=== PATIENT | male | born 1995 ===

== ENCOUNTER 2020-04-18 19:59 | Emergency (ER) | payer BC, SELFPAY ==
[2020-04-18 20:07] VITALS: BP 131/90; PULSE 80; RESP 18; TEMP 36.6; O2SAT 97; BMI 29.1
--- NOTE | 2020-04-18 20:17 | ED_ITS ---
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 Patient has had multiple recent exposures to COVID positive patients as an EMT. Patient has current symptoms of nonproductive cough and loss of taste. Patient says he had some nasal drainage and diarrhea earlier this week but that has since resolved. Denies any fever or chills. Associated symptoms: Deny chest pain, dyspnea, headache(s), nausea, rash, palpitations or vomiting Review of Systems Const: Reports: other (Loss of taste); Denies: fever(s), chills or fatigue Eyes: Denies: change in vision or eye discomfort ENMT: Reports: nasal discharge (This symptom has since resolved.); Denies: throat pain, odynophagia or nasal congestion Card: Denies: chest pain, palpitations, edema, swelling of feet/ankles, dyspnea on exertion or orthopnea Resp: Reports: non-productive cough; Denies: dyspnea or productive cough GI: Reports: diarrhea (Patient had this symptom earlier this week but it has since resolved.); Denies: abdominal pain, nausea, vomiting, constipation or hematochezia : Denies: flank pain, difficulty urinating, dysuria or hematuria Musc: Denies: neck pain, back pain or extremity swelling Skin/Breast: Denies: rash or new lesions Neuro: Denies: headache(s), numbness in extremities or weakness in extremities Physical Exam Const: COMMON NORMALS: no acute distress, patient oriented x3, healthy appearing and alert GENERAL APPEARANCE: cooperative and comfortable HENMT: COMMON NORMALS: normocephalic HEAD & SCALP: normocephalic MOUTH: Normal oral and palatal mucosa present THROAT: posterior oropharynx normal and uvula midline Eye: COMMON NORMALS: conjunctivae normal CONJUNCTIVA: Yes conjunctivae normal Neck/C-Spine: COMMON NORMALS: supple GENERAL: Yes normal visual inspection Resp: COMMON NORMALS: normal respiratory effort, No retractions, No use of accessory muscles and clear to auscultation bilaterally EFFORT & INSPECTION: Yes able to speak in complete sentences, No tachypneic, No respiratory distress, No labored, No Actively coughing and No audible wheezes AUSCULTATION: clear to auscultation bilaterally and no wheezes Cardio: COMMON NORMALS: regular rate, regular rhythm, S1 normal heart sound present, S2 normal heart sound present, No gallops present (Cardio), No clicks present (Cardio), No murmurs present (Cardio) and Peripheral pulses 2+ throughout RATE: regular rate RHYTHM: regular rhythm HEART SOUNDS: S1 normal heart sound present and S2 normal heart sound present PERIPHERAL PULSES: Peripheral pulses 2+ throughout GI: COMMON NORMALS: Normal to inspection, nondistended, normoactive bowel sounds present, Soft to palpation, non-tender and no masses PALPATION: Yes Soft to palpation : COMMON NORMALS: Yes no CVA tenderness BLADDER/KIDNEY EXAM: Yes no CVA tenderness Back/Pelvis: COMMON NORMALS: no CVA tenderness Extremity: COMMON NORMALS: normal to inspection and no pedal edema Neuro: COMMON NORMALS: patient oriented x3 and moves all extremities SENSORIUM/ORIENTATION: Yes alert Skin: COMMON NORMALS: no rashes or lesions noted GENERAL SKIN EXAM: no rashes or lesions noted and dry skin Course Vital Signs: Vital signs: Vital Signs Temperature 97.9 F 04/18/20 20:07 Pulse Rate 80 04/18/20 20:07 Respiratory Rate 18 04/18/20 20:07 Blood Pressure 131/90 04/18/20 20:07 Pulse Oximetry 97 04/18/20 20:07 MDM - General Adult MDM Narrative: Medical decision making narrative: Patient is a 24-year-old male who is an EMT and was sent here by work to be tested for COVID-19. Patient has had multiple recent contacts with positive COVID patient's. Physical exam showed a healthy 24-year-old male in no acute distress. Blood pressure 131/90 pulse 80 respirations 18 and temperature was 97.9 and 97% O2 on room air. Lungs were clear to auscultation bilaterally no signs of respiratory distress. Workers comp forms were filled out and patient was tested for SARS COVID to antigen, pending lab results. Patient was given the rapid test because his work needed to know soon as possible since he is scheduled for the next several days. Patient was discharged and told to self quarantine until he hears results. I told him results could potentially be back in about an hour. Follow-up with PCP in 7 to 10 days and return to ED if you have any worsening symptoms or any signs of respiratory distress. Patient understood and with plan. Lab Data: Attestation: I reviewed the patient's lab results. Labs: Lab Results 04/18/20 Range/Units 20:30 SARS-CoV-2 Ag (Rap id) Positive H (Negative) Discharge Plan Discharge Patient Disposition: Home Clinical Impression: Encounter for screening laboratory testing for COVID-19 virus Condition: Stable Discharge Orders: Discharge Order (Routine); Ordered 04/18/20 Ordered By: Moise Moreno Discharge Diet: Regular Discharge Activity: Limit activity as instructed Activity Restrictions/Additional Instructions: Follow-up with medical provider as directed in 7-10 days. COVID testing was performed and you should be getting results in the next couple hours, until that time self quarantine. If results are positive self quarantine for 14 days. Continue taking all home medications as prescribed. Return to the ER or your medical provider if condition worsens. Please read and understand discharge instructions. If any questions, please ask. Discharge Date/Time: 04/18/20 20:50 Coding Level of Care Code ED [employer] for Traci He
[2020-04-18 21:06] LABS: SARS Covid-2 Antigen Positive (Negative)
--- NOTE | 2020-04-18 21:15 | PC.NURSE ---
patient notified by phone of results.
== END 2020-04-18 20:50 | disposition home or self-care (01) ==
PROVIDERS: Emergency Provider Physician Assistant
DX: U07.1 COVID-19 (principal)
CPT/HCPCS: 12345; 87426; 99281; 99282